=== PATIENT | male | born 1960 | race Caucasian/White ===

== ENCOUNTER 2020-06-03 10:21 | Emergency (ER) | payer BC, OTHER ==
[~2020-06-03] VITALS: Ht 180.3 cm; Wt 102.0 kg
--- NOTE | 2020-06-03 10:52 | Diagnostic Imaging Report ---
CHEST 1 VIEW AP/PA ONLY Indication: Sudden onset chest pain. Comparison: None available. Findings: No focal airspace disease in the visualized lungs. Please note that the posterior lower lobes are poorly evaluated by portable radiography. No pleural effusion or pneumothorax. Cardiac silhouette is enlarged likely due to underlying cardiomegaly, although pericardial effusion could also give this appearance. Prior CABG. Impression: 1. Enlargement of cardiac silhouette is most likely due to cardiomegaly. However, pericardial effusion could also give this appearance. 2. No acute pulmonary pathology by radiography. Dictated by: Dictated on workstation # [id number]
[2020-06-03 11:01] LABS: BASOPHILS % (AUTO) 1 % (0-10); EOSINOPHILS % (AUTO) 3 % (0-10); HEMATOCRIT 42 % (40-54); LYMPHOCYTES % (AUTO) 35 % (12-44); MEAN CORPUSCULAR HEMOGLOBIN 29 PG (25-34); MEAN CORPUSCULAR HGB CONC 34 G/DL (32-36); MEAN CORPUSCULAR VOLUME 85 FL (80-99); MEAN PLATELET VOLUME 10.8 FL (7.4-10.4); MONOCYTES % (AUTO) 9 % (0-12); NEUTROPHILS % (AUTO) 53 % (42-75); PLATELET COUNT 161 10^3/uL (130-400); WHITE BLOOD COUNT 5.4 10^3/uL (4.3-11.0)
[2020-06-03 11:02] LABS: EOSINOPHILS # (AUTO) 0.2 10^3/uL (0.0-0.3); LYMPHOCYTES # (AUTO) 1.9 X 10^3 (1.0-4.0); MONOCYTES # (AUTO) 0.5 X 10^3 (0.0-1.0); NEUTROPHILS # (AUTO) 2.8 X 10^3 (1.8-7.8)
[2020-06-03 11:09] LABS: ALANINE AMINOTRANSFERASE 47 U/L (0-55); ALBUMIN 4.3 GM/DL (3.2-4.5); ALKALINE PHOSPHATASE 105 U/L (40-136); BILIRUBIN,TOTAL 0.8 MG/DL (0.1-1.0); BUN/CREATININE RATIO 12; CALCIUM 9.5 MG/DL (8.5-10.1); CARBON DIOXIDE 28 MMOL/L (21-32); CHLORIDE 104 MMOL/L (98-107); CREATININE SERUM 0.97 MG/DL (0.60-1.30); GFR ESTIMATED > 60; GLUCOSE 112 MG/DL (70-105); POTASSIUM 4.3 MMOL/L (3.6-5.0); SODIUM 141 MMOL/L (135-145); TOTAL PROTEIN 6.8 GM/DL (6.4-8.2)
[2020-06-03] MEDS ORDERED: NITROGLYCERIN 2% OINT 1 GM UNIT DOSE PACKET TOP ONE (11:15)
[2020-06-03] MEDS ORDERED: fentaNYL INJECTION 100 MCG/2 ML AMP IVP ONE (12:30)
--- NOTE | 2020-06-03 12:47 | ED Chest Pain ---
General Chief Complaint: Chest Pain Stated Complaint: CHEST PAIN Nursing Triage Note: Patient reports sudden onset of left precordial chest pain, described as "uncomfortable, not really pain", rated 2/10, approximately 2 hours ago. He states he took tums with no relief. He reports he had an WA with triple-bypass in 2010. Nursing Sepsis Screen: No Definite Risk Exam Limitations: no limitations History of Present Illness Date Seen by Provider: Jun 03, 2020 Time Seen by Provider: 10:30 Initial Comments Patient is a 60-year-old male history of CAD, CABG and WA who presents with complaints of left parasternal chest pain starting 1 hour prior to ED arrival. Symptoms began at work with light exertion. Patient denies nausea vomiting and sweats. States symptoms feel like indigestion and are similar to previous WA. Patient took Tums without relief. Currently rates chest pain is 2 out of 10. Patient has had stent placed in the past 3 months. Denies leg pain, swelling, nausea, vomiting. No fever chills, sweats. No cough, sore throat. No abdominal pain. No other acute symptoms or complaints. Timing/Duration: 1 hour Severity/Quality: mild Location: substernal Radiation: no radiation Activities at Onset: none Prior CP/Workup: cardiac cath Modifying Factors: improves with antacids ASA po COATER SMOKING PIPE: Yes NTG SL COATER SMOKING PIPE: No Allergies and Home Medications Allergies Coded Allergies: No Known Drug Allergies (Unverified , 06/03/20) Patient Home Medication List Home Medication List Reviewed: Yes Review of Systems Review of Systems Constitutional: see HPI EENTM: See HPI Respiratory: See HPI Cardiovascular: See HPI Genitourinary: See HPI Musculoskeletal: see HPI Skin: see HPI Psychiatric/Neurological: See HPI Endocrine: See HPI Hematologic/Lymphatic: See HPI All Other Systems Reviewed Negative Unless Noted: Yes Past Ptzobmy-Jzukfr-Ntywcj Hx Past Med/Social Hx: Reviewed Nursing Past Med/Soc Hx Patient Social History Alcohol Use: Occasionally Uses Smoking Status: Former Smoker Type Used: Cigarettes Former Smoker, Quit: May 06, 2010 2nd Hand Smoke Exposure: No Recent Infectious Disease Expo: No Recent Hopitalizations: No Seasonal Allergies Seasonal Allergies: No Past Medical History Surgeries: Yes Cardiac, CABG, Coronary Stent, Orthopedic Respiratory: No Cardiac: Yes Coronary Artery Disease, Heart Attack Neurological: No Genitourinary: No Gastrointestinal: No Musculoskeletal: No Endocrine: No HEENT: No Cancer: No Psychosocial: No Integumentary: No Physical Exam Vital Signs Vital Signs - First Documented 06/03/20 10:36 Temp 36.6 Pulse 71 Resp 17 B/P (MAP) 137/73 (94) Pulse Ox 99 O2 Delivery Room Air Capillary Refill : NONE Height, Weight, BMI Height: '" Weight: lbs. oz. 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 Norm as Tested Skin: Warm/Dry Focused Exam Sepsis Stage: Ruled Out Progress/Results/Core Measures Results/Orders Lab Results Laboratory Tests Test 06/03/20 10:30 Range/Units White Blood Count 5.4 4.3-11.0 10^3/uL Red Blood Count 4.90 4.35-5.85 10^6/uL Hemoglobin 14.0 13.3-17.7 G/DL Hematocrit 42 40-54 % Mean Corpuscular Volume 85 80-99 FL Mean Corpuscular Hemoglobin 29 25-34 PG Mean Corpuscular Hemoglobin Concent 34 32-36 G/DL Red Cell Distribution Width 13.3 10.0-14.5 % Platelet Count 161 130-400 10^3/uL Mean Platelet Volume 10.8 H 7.4-10.4 FL Immature Granulocyte % (Auto) 0 % Neutrophils (%) (Auto) 53 42-75 % Lymphocytes (%) (Auto) 35 12-44 % Monocytes (%) (Auto) 9 0-12 % Eosinophils (%) (Auto) 3 0-10 % Basophils (%) (Auto) 1 0-10 % Neutrophils # (Auto) 2.8 1.8-7.8 X 10^3 Lymphocytes # (Auto) 1.9 1.0-4.0 X 10^3 Monocytes # (Auto) 0.5 0.0-1.0 X 10^3 Eosinophils # (Auto) 0.2 0.0-0.3 10^3/uL Basophils # (Auto) 0.0 0.0-0.1 10^3/uL Immature Granulocyte # (Auto) 0.0 0.0-0.1 10^3/uL Sodium Level 141 135-145 MMOL/L Potassium Level 4.3 3.6-5.0 MMOL/L Chloride Level 104 98-107 MMOL/L Carbon Dioxide Level 28 21-32 MMOL/L Anion Gap 9 5-14 MMOL/L Blood Urea Nitrogen 12 7-18 MG/DL Creatinine 0.97 0.60-1.30 MG/DL Estimat Glomerular Filtration Rate > 60 BUN/Creatinine Ratio 12 Glucose Level 112 H 70-105 MG/DL Calcium Level 9.5 8.5-10.1 MG/DL Corrected Calcium 9.3 8.5-10.1 MG/DL Total Bilirubin 0.8 0.1-1.0 MG/DL Aspartate Amino Transf (AST/SGOT) 33 5-34 U/L Alanine Aminotransferase (ALT/SGPT) 47 0-55 U/L Alkaline Phosphatase 105 40-136 U/L Troponin I < 0.30 <0.30 NG/ML Pro-B-Type Natriuretic Peptide 221.8 H <75.0 PG/ML Total Protein 6.8 6.4-8.2 GM/DL Albumin 4.3 3.2-4.5 GM/DL My Orders Orders - MARTHA RIVERA DO Cbc With Automated Diff (06/03/20 10:39) Comprehensive Metabolic Panel (06/03/20 10:39) Chest 1 View Ap/Pa Only (06/03/20 10:39) Continuous Ekg Monitoring (06/03/20 10:39) Troponin I Fs (06/03/20 10:39) Probnp Fs (06/03/20 10:39) Ekg Tracing (06/03/20 10:43) Nitroglycerin Ointment (Nitrobid Ointme (06/03/20 11:15) Fentanyl Injection (Sublimaze Injection (06/03/20 12:30) Medications Given in ED Current Medications Medications Dose Ordered Sig/Stefan Route Start Time Stop Time Status Last Admin Dose Admin Fentanyl Citrate 50 mcg ONCE ONCE IVP 06/03/20 12:30 06/03/20 12:31 DC 06/03/20 12:41 50 MCG Nitroglycerin 0.5 inch ONCE ONCE TOP 06/03/20 11:15 06/03/20 11:16 DC 06/03/20 11:40 0.5 INCH Vital Signs/I&O 06/03/20 06/03/20 10:36 10:40 Temp 36.6 Pulse 71 Resp 17 B/P (MAP) 137/73 (94) Pulse Ox 99 O2 Delivery Room Air Room Air Blood Pressure Mean: 94 Departure Communication (Admissions) Chest x-ray: No acute cardiopulmonary disease. Radiology report EKG: Nonspecific changes. Patient with exertional chest pain with negative troponin and nonspecific EKG changes in the setting of known coronary disease. Nitroglycerin given. Patient accepted to Dr. Lucas Koehler at [facility] at 12:15 PM Impression Primary Impression: Chest pain Disposition: XFER SHT-TRM HOSP Condition: Stable Departure-Patient Inst. Referrals: SYED THRASHER MD (PCP/Family) Primary Care Physician MARTHA RIVERA DO Jun 03, 2020 12:47
[2020-06-03 15:22] VITALS: BP 118/78
== END 2020-06-03 15:22 | disposition short-term general hospital (02) ==
LOC: ER FS 10:23
DX: R07.9 Chest pain, unspecified (principal); I25.2 Old myocardial infarction; Z95.1 Presence of aortocoronary bypass graft; Z95.5 Presence of coronary angioplasty implant and graft; Z87.891 Personal history of nicotine dependence; Z95.9 Presence of cardiac and vascular implant and graft, unspecified
CPT/HCPCS: 36415; 71045; 80053; 83880; 84484; 85025